=== PATIENT | female | born 1940 | race Caucasian/White ===

== ENCOUNTER → 2016-11-20 09:43 | Outpatient (CLI) | payer MEDICARE, MEDICAID | END | disposition home or self-care (01) | LOC: D.NM 09:43 | DX: S32.050A Wedge compression fracture of fifth lumbar vertebra, initial encounter for closed fracture (principal); C90.01 Multiple myeloma in remission ==

== ENCOUNTER 2016-12-08 13:25 | Emergency (ER) | payer MEDICARE, MEDICAID | END 2016-12-08 18:44 | disposition home or self-care (01) | LOC: D.ER 13:25 | DX: B34.9 Viral infection, unspecified (principal); K59.00 Constipation, unspecified; I10 Essential (primary) hypertension; Z85.830 Personal history of malignant neoplasm of bone ==

== ENCOUNTER → 2017-04-03 12:55 | Outpatient (CLI) | payer MEDICARE, MEDICAID | END | disposition home or self-care (01) | LOC: D.MRI 03-26 10:00 | DX: G31.84 Mild cognitive impairment of uncertain or unknown etiology (principal) ==

== ENCOUNTER 2018-01-13 21:33 | Emergency (ER) | payer MEDICARE, MEDICAID ==
[~2018-01-13] VITALS: Ht 160 cm; Wt 53.6 kg
[2018-01-13 21:39] VITALS: Ht 160 cm; Wt 53.6 kg
[2018-01-13] MEDS ORDERED: NINLARO PO (21:42)
[2018-01-13] MEDS ORDERED: ZOVIRAX400 MG PO (21:42)
[2018-01-13] MEDS ORDERED: REVLIMID15 MG PO (21:43)
[2018-01-13] MEDS ORDERED: NORCO 10-325 TA1 TAB (21:43)
[2018-01-13] MEDS ORDERED: CATAPRES0.1 MG PO (21:43)
[2018-01-13] MEDS ORDERED: BAYER CHEWABLE81 MG PO (21:44)
[2018-01-13] MEDS ORDERED: DECADRON4 MG (21:44)
[2018-01-13] MEDS ORDERED: ZESTRIL40 MG PO (21:44)
[2018-01-13 22:04] LABS: BASOPHILS 0.3 % (0-2); EOSINOPHILS 0.2 % (0-7); HEMATOCRIT 35.7 % (36.0-48.0); HEMOGLOBIN 11.6 g/dL (12-16); IMMATURE GRANULOCYTES 0.5 % (0-5); LYMPHOCYTES 14.7 % (15-50); MCH 32.2 pg (26.0-34.0); MCHC 32.5 g/dL (31.0-37.0); MCV 99.2 fL (80.0-100.0); MEAN PLATELET VOLUME 12.6 fL (7.4-10.4); MONOCYTES 5.7 % (2-11); NEUTROPHILS 78.6 % (40-80); RDW 13.2 % (11.5-14.5); WBC 6.1 10x3/uL (4.8-10.8)
[2018-01-13 22:09] LABS: PLATELET COUNT 166 10x3/uL (130-400)
[2018-01-13 22:19] LABS: ALBUMIN 3.2 g/dL (3.4-5.0); ANION GAP 10.1 mmol/L (8-16); BILIRUBIN - TOTAL 0.27 mg/dL (0.2-1.3); CARBON DIOXIDE 30.8 mmol/L (21.0-32.0); CREATININE - SERUM 0.8 mg/dL (0.6-1.3); POTASSIUM - SERUM 3.9 mmol/L (3.5-5.1); PROTEIN - SERUM 6.9 g/dL (6.4-8.2)
[2018-01-13 22:20] LABS: MAGNESIUM - SERUM 2.1 mg/dL (1.8-2.4)
[2018-01-13 23:29] LABS: APPEARANCE CLOUDY (CLEAR); BILIRUBIN NEGATIVE (NEGATIVE); COLOR YELLOW (YELLOW); GLUCOSE NEGATIVE (NEGATIVE); KETONE NEGATIVE (NEGATIVE); NITRITE NEGATIVE (NEGATIVE); PROTEIN NEGATIVE (NEGATIVE); UROBILINOGEN NORMAL (NORMAL)
[2018-01-13 23:31] LABS: AMORPHOUS SEDIMENT >1+ /lpf (NONE SEEN); BACTERIA FEW /hpf (NONE SEEN); EPITHELIAL CELLS 0-5 /hpf (0-5); RED CELLS - URINE NONE SEEN /hpf (0-5); WHITE CELLS - URINE 0-5 /hpf (0-5)
[2018-01-14] MEDS ORDERED: ZOFRAN4 MG PO (00:36)
[2018-01-14 01:11] VITALS: BP 118/55
== END 2018-01-14 01:12 | disposition home or self-care (01) ==
LOC: D.ER 21:33
PROVIDERS: Family Medicine
DX: R11.10 Vomiting, unspecified (principal); E86.9 Volume depletion, unspecified; C90.01 Multiple myeloma in remission; I10 Essential (primary) hypertension